=== PATIENT | male | born 1965 | race Caucasian/White ===

== ENCOUNTER 2016-07-11 13:28 | Outpatient (CLI) ==
--- NOTE | 2016-07-11 15:42 | DI ---
Examination: Two radiographic images of the chest. Comparison: CT scan of the abdomen pelvis performed 08/19/2010. Reason for study: Bronchitis. FINDINGS: No pneumothorax, pleural effusion, or focal consolidation. There is mild prominence of t he central and small airways. The cardiac silhouette is not enlarged. Impression: Small airway prominence can be seen with inflammation (bronchitis), atypical infection, and reactive airway disease. No focal consolidation.
== END 2016-07-11 13:29 | disposition home or self-care (01) ==
LOC: RAD 13:28
PROVIDERS: ATTEND Family Medicine
DX: J40 Bronchitis, not specified as acute or chronic (principal)

== ENCOUNTER 2017-09-12 12:00 | Outpatient (CLI) | END 2017-09-12 12:01 | disposition left against medical advice (07) | LOC: AMBL 12:00 | PROVIDERS: ATTEND Emergency Medicine | DX: R55 Syncope and collapse (principal) ==